=== PATIENT | male | born 1955 | race Hispanic/Latino ===

== ENCOUNTER 2017-10-23 21:06 | Emergency (ER) | payer SELFPAY ==
--- NOTE | 2017-10-23 21:15 | ED PDOC ---
Arrival/HPI - General Time Seen by Provider: 10/23/17 21:08 Historian: Patient - History of Present Illness Narrative History of Present Illness (Text): 10/23/17 21:10 62 year old male, pmh including L3 compression fracture, nkda, last tetanus under 1 year ago, complaining of rt. knee abrasion x 1 hour. Pt. stated that he had a can of beer, walking on the street into a pizza store, accidentally fall on the rt. knee, no head or neck injury, able to recall the whole event, mild rt. knee pain, sustained abrasion, no abdominal pain, no tremors, no palpitation, no chest pain, no other medical or psychological complaints. Past Medical History - Provider Review Nursing Documentation Reviewed: Yes - Infectious Disease Hx of Infectious Diseases: None - Tetanus Immunization Tetanus Immunization: Unknown - Past Medical History Past Medical History: No Previous - Cardiac Hx Cardiac Disorders: No - Pulmonary Hx Chronic Obstructive Pulmonary Disease (COPD): Yes - Neurological Hx Neurological Disorder: No (pt denies seizure history) Hx Seizures: Yes - HEENT Hx HEENT Disorder: No - Renal Hx Renal Disorder: No - Endocrine/Metabolic Hx Endocrine Disorders: No - Hematological/Oncological Hx Blood Disorders: No - Integumentary Hx Dermatological Disorder: No - Musculoskeletal/Rheumatological Hx Falls: No - Gastrointestinal Hx Gastrointestinal Disorders: No - Genitourinary/Gynecological Hx Genitourinary Disorders: No - Psychiatric Hx Psychophysiologic Disorder: Yes (ETOH ABUSE-6 PPD,BEER,12 STEP PROGRAM, DRINKING SINCE 20,MOM/DAD DRINKS,) Hx Anxiety: Yes Hx Substance Use: No - Past Surgical History Past Surgical History: No Previous - Surgical History Hx Orthopedic Surgery: Yes (left shoulder and right knee) - Anesthesia Hx Anesthesia Reactions: No - Suicidal Assessment Feels Threatened In Home Enviroment: No Family/Social History - Physician Review Nursing Documentation Reviewed: Yes Family/Social History: Unknown Family HX Smoking Status: Heavy Smoker > 10 Cigarettes Daily Hx Alcohol Use: Yes Hx Substance Use: No Hx Substance Use Treatment: No Allergies/Home Meds Allergies/Adverse Reactions: Allergies No Known Allergies Allergy (Verified 10/23/17 21:19) Review of Systems - Review of Systems Constitutional: absent: Fatigue, Fevers Eyes: absent: Vision Changes ENT: absent: Hearing Changes Respiratory: absent: SOB, Cough Cardiovascular: absent: Chest Pain Gastrointestinal: absent: Abdominal Pain, Nausea, Vomiting Musculoskeletal: Arthralgias. absent: Back Pain, Neck Pain, Joint Swelling, Myalgias Skin: Rash. absent: Pruritis, Skin Lesions, Laceration, Abscess, Ulcer, Cellulitis Neurological: absent: Headache, Dizziness, Gait Changes, Speech Changes Psychiatric: absent: Anxiety, Depression, Suicidal Ideation Physical Exam Vital Signs Temp Pulse Resp BP Pulse Ox 10/24/17 05:52 81 18 130/79 100 10/24/17 03:06 82 18 125/75 100 10/23/17 21:27 97.6 F 82 18 122/62 98 - Systems Exam Head: Present: Atraumatic, Normocephalic, Other (no facial bony tenderness or swelling. ). No: Tenderness, Contusion, Swelling, Ecchymosis, Abrasion, Laceration Pupils: Present: PERRL Extroacular Muscles: Present: EOMI Conjunctiva: Present: Normal Ears: Present: NORMAL TM, Normal Canal. No: Erythema Mouth: Present: Moist Mucous Membranes Nose (External): Present: Atraumatic. No: Abrasion, Contusion, Laceration Nose (Internal): Present: Normal Inspection, No Active Bleeding. No: Rhinorrhea , Septal Hematoma, Epistaxis Neck: Present: Normal Range of Motion Respiratory/Chest: Present: Clear to Auscultation, Good Air Exchange. No: Respiratory Distress, Accessory Muscle Use Cardiovascular: Present: Regular Rate and Rhythm, Normal S1, S2. No: Murmurs Abdomen: No: Tenderness, Distention, Peritoneal Signs, Rebound, Guarding Back: Present: Normal Inspection. No: Midline Tenderness, Paraspinal Tenderness , Pain with Leg Raise Upper Extremity: Present: Normal Inspection, Normal ROM, NORMAL PULSES, Neurovascularly Intact, Capillary Refill < 2s. No: Cyanosis, Edema, Deformity Lower Extremity: Present: Normal Inspection, NORMAL PULSES, Normal ROM, Neurovascularly Intact, Capillary Refill < 2 s, Other (Rt. knee: mild superficial abrasion noted anteriorlly approx. 1cm diameter of the knee, no swelling, no deformity, FROM without limitation, sensation intact, motor 5/5, + DPPT pulses, capillary refill< 2 seconds, neurovascular intact. ). No: Edema, Tomas's Sign, Swelling, Deformity Neurological: Present: GCS=15, CN II-XII Intact, Speech Normal Skin: Present: Warm, Dry, Normal Color. No: Rashes Psychiatric: Present: Alert, Oriented x 3, Normal Insight, Normal Concentration Medical Decision Making ED Course and Treatment: 10/23/17 21:18 -rt. knee xray -wound irrigate with saline/betadine, bacitracin and gauze dressing -observe and reassess 10/24/17 02:00 -FS 77, food and drink given -Rt. knee xray show no fracture or dislocation -Resting well, easily arousable, walking with normal gait and posture independently. -Discharge home with bacitracin oinment, follow up with your own pmd and orthopedic within 2 days return to the ER for any new or worsening signs or symptoms. - RAD Interpretation Radiology Orders: 10/23/17 21:24 KNEE W PATELLA RIGHT 3 VIEW [RAD] Stat PROCEDURE: Right Knee Radiographs. HISTORY: rt. knee injury from fall , abrasion anteriorly COMPARISON: None. FINDINGS: BONES: Normal. No fracture. JOINTS: Normal. No osteoarthritis. JOINT EFFUSION: None. OTHER FINDINGS: None. IMPRESSION: Normal radiographs of the right knee. 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 Disposition/Present on Arrival - Present on Arrival Any Indicators Present on Arrival: No History of DVT/PE: No History of Uncontrolled Diabetes: No Urinary Catheter: No History of Decub. Ulcer: No History Surgical Site Infection Following: None - Disposition Have Diagnosis and Disposition been Completed?: Yes Diagnosis: Knee abrasion Disposition: HOME/ ROUTINE Disposition Time: 21:18 Patient Plan: Discharge Condition: GOOD Discharge Instructions (ExitCare): Skin Abrasions Additional Instructions: -Discharge home with bacitracin oinment, follow up with your own pmd and orthopedic within 2 days return to the ER for any new or worsening signs or symptoms. Prescriptions: Bacitracin Ointment [Bacitracin] 1 appful TOP BID #15 g Referrals: Kayden Rees III, MD [Medical Doctor] - Follow up with primary Forms: WORK NOTE
[2017-10-23 21:21] VITALS: BMI 25.7
[2017-10-23 21:28] VITALS: RESP 18; TEMP 97.6
[2017-10-24 05:38] VITALS: O2SAT 100
[2017-10-24 05:55] VITALS: BP 130/79; PULSE 81
--- NOTE | 2017-10-24 09:12 | RAD ---
PROCEDURE: Right Knee Radiographs. HISTORY: rt. knee injury from fall , abrasion anteriorly COMPARISON: None. FINDINGS: BONES: Normal. No fracture. JOINTS: Normal. No osteoarthritis. JOINT EFFUSION: None. OTHER FINDINGS: None. IMPRESSION: Normal radiographs of the right knee.
== END 2017-10-24 05:52 | disposition home or self-care (01) ==
LOC: ED 21:06
DX: S80.211A Abrasion, right knee, initial encounter (principal); W19.XXXA Unspecified fall, initial encounter; Y93.01 Activity, walking, marching and hiking; Y92.410 Unspecified street and highway as the place of occurrence of the external cause; F17.210 Nicotine dependence, cigarettes, uncomplicated